=== PATIENT | male | born 1985 | race Caucasian/White ===

== ENCOUNTER 2016-10-11 09:49 | Emergency (ER) | payer OTHER ==
[~2016-10-11] VITALS: Ht 182.9 cm; Wt 102.1 kg
[~2016-10-11 09:49] MED LIST: AMOXICILLIN500 M2 PO; AUGMENTIN 875 M1 TAB PO; AUGMENTIN 875-1 EACH PO; BACTRIM DS TAB1 EACH PO; DIVALPROEX SOD500 MG PO; GABAPENTIN400 MG PO; HYDROXYZINE PAM50 MG PO; IBUPROFEN800 M1 PO; NAPROXEN500 MG PO; NORCO 5-325 TA1 EACH PO; PERCOCET 5-3251 EACH PO; PROAIR HFA0.09 MG/Ac INH; TRAMADOL HCL50 M1 PO; TRAZODONE HCL50 M1 PO; TRIHEXYPHENIDYL2 MG PO; ZIPRASIDONE HYD80 MG PO
[2016-10-11 10:21] VITALS: BP 108/76
--- NOTE | 2016-10-11 10:29 | ED HAND/WRIST INJURY COMPLAINT ---
History of Present Illness General Chief Complaint: Hand or Wrist Injury Stated Complaint: R HAND INJURY Source: patient Exam Limitations: no limitations Vital Signs & Intake/Output Vital Signs & Intake/Output Vital Signs Date Time Temp Pulse Resp B/P Pulse O2 O2 Flow FiO2 Ox Delivery Rate 10/11 1021 97.4 51 18 108/76 98 Room Air ED Intake and Output 10/12 0000 10/11 1200 Intake Total Output Total Balance Patient 225 lb Weight Allergies Coded Allergies: NO KNOWN ALLERGIES (04/07/16) Reconcile Medications Albuterol Sulfate (Proair Hfa) 0.09 MG/Actuation ALLEN 2 PUFF INH PRN ASTHMA ( Reported) Amoxicillin 500 MG CAPSULE 1 CAP PO BID CELLULITIS Divalproex Sodium (Divalproex Sodium ER) 500 MG TAB.ER.24H 3 TAB PO AD MENTAL HEALTH (Reported) Gabapentin 400 MG CAPSULE 6 CAP PO AD MENTAL HEALTH (Reported) Ibuprofen 600 MG TABLET 1 TAB PO TID PRN PAIN with food Oxycodone HCl/Acetaminophen (Percocet 5-325 MG Tablet) 5 MG-325 MG TABLET 1 TAB PO BID PRN PAIN Sulfamethoxazole/Trimethoprim (Bactrim Ds Tablet) 1 EACH TABLET 1 TAB PO BID ABSCESS Trazodone HCl 50 MG TABLET 1 TAB PO QPM PRN INSOMNIA (Reported) TRIHEXYPHENIDYL HCL (Trihexyphenidyl HCl) 2 MG TABLET 1 TAB PO BID MENTAL HEALTH (Reported) ZIPRASIDONE HCL (Ziprasidone Hydrochloride) 80 MG CAPSULE 1 CAP PO BID MENTAL HEALTH (Reported) Triage Note: FELL LAST PM, SLIPPED ON KITCHEN FLOOR, C/O PAIN IN R HAND (BASE OF THUMB). Triage Nurses Notes Reviewed? yes HPI: 31-year-old male was brought to triage to [facility] for evaluation of hand pain that occurred last night. He reports that he tripped and fell with his right hand outstretched. He is complaining of bruising and pain to his right thumb and palm of his hand area. Pain is 10 out of 10 headache throbbing. Ice pack applied at triage and now again in the hallway. Percocet offered for pain. He denies any other injuries. (BRANDON FINNEY APRN) Past History Travel History Traveled to [place] past 21 day No Medical History Any Pertinent Medical History? 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 No (BRANDON FINNEY APRN) Review of Systems Review of Systems Constitutional: Reports: no symptoms. EENTM: Reports: no symptoms. Respiratory: Reports: no symptoms. Cardiovascular: Reports: no symptoms. GI: Reports: no symptoms. Genitourinary: Reports: no symptoms. Musculoskeletal: Reports: see HPI. Skin: Reports: no symptoms. Neurological/Psychological: Reports: no symptoms. Hematologic/Endocrine: Reports: no symptoms. Immunologic/Allergic: Reports: no symptoms. All Other Systems: Reviewed and Negative (BRANDON FINNEY APRN) Physical Exam Physical Exam General Appearance: well developed/nourished, mild distress Head: atraumatic Eyes: Bilateral: PERRL, EOMI. Ears, Nose, Throat: normal pharynx, normal ENT inspection, hearing grossly normal Neck: normal inspection, supple Cardiovascular/Respiratory: normal breath sounds, regular rate/rhythm Back: normal inspection Hand Left: normal inspection, normal range of motion Hand Right: normal range of motion, ecchymosis, swelling, tender Skin: intact, normal color, warm/dry Lymphatic: no anterior cervical briana Diagram Hands Front 1) Ecchymosis, tenderness and swelling (BRNADON FINNEY APRN) Progress Differential Diagnosis: contusion, fracture Plan of Care: Orders Procedure Date/time Status XRY-HAND, 3 View RIGHT 10/11 1048 Active Diagnostic Imaging: Viewed by Me: Radiology Read. Discussed w/RAD: Radiology Read. Comments: PATIENT: CONCHITA LOPEZ PRESENT AGE: 31 PATIENT ACCOUNT NO: [id number] : 86 LOCATION: [facility] ORDERING PHYSICIAN: BRANDON FINNEY APRN SERVICE DATE: 10/11/16-1048 EXAM TYPE: RAD - XRY-HAND, RIGHT EXAMINATION: XR HAND, RIGHT CLINICAL INFORMATION: Fall on outstretched hand with bruising or tenderness to right palm. COMPARISON: None TECHNIQUE: 3 views of the right hand performed. of the right hand. FINDINGS: The alignment is normal. No fracture, dislocation or acute osseous abnormality is seen. IMPRESSION: Normal examination. DICTATED BY: ELISE PINEDO MD DATE/TIME DICTATED:10/11/161258 ACADEMIC REGISTRAR:CHEYANNE DATE/TIME TRANSCRIBED:10/11/161258 CONFIDENTIAL, DO NOT COPY WITHOUT APPROPRIATE AUTHORIZATION. (BRANDON FINNEY APRN) Departure Departure Time of Disposition: 1223 Disposition: HOME OR SELF CARE Condition: Stable Clinical Impression Primary Impression: Hand contusion Qualifiers: Encounter type: initial encounter Laterality: right Qualified Code: S60.221A - Contusion of right hand, initial encounter Referrals: BEL ANDERS (PCP/Family) Additional Instructions: Ice to right, 3-4 times a day for the next 3 days. Ibuprofen for mild to moderate pain and Percocet as needed for moderate to severe pain every 4-6 hours. Use Nehemiah bandage for comfort to right hand. Departure Forms: Customer Survey General Discharge Information Prescriptions: Current Visit Scripts Oxycodone HCl/Acetaminophen (Percocet 5-325 MG Tablet) 1 TAB PO BID PRN PAIN #10 TAB Ibuprofen 1 TAB PO TID PRN PAIN #30 TAB with food (BRANDON FINNEY APRN) PA/CLINICAL PHARMACY MANAGER Co-Sign Statement Statement: ED Attending supervision documentation- [] I saw and evaluated the patient. I have also reviewed all the pertinent lab results and diagnostic results. I agree with the findings and the plan of care as documented in the PA's/CLINICAL PHARMACY MANAGER's documentation. [X] I have reviewed the ED Record and agree with the PA's/CLINICAL PHARMACY MANAGER's documentation. [] Additions or exceptions (if any) to the PAs/CLINICAL PHARMACY MANAGER's note and plan are summarized below: [] (YURI BOYER,LETY Jordan)
[2016-10-11] MEDS ORDERED: PERCOCET 5-3251 EACH PO (12:25)
[2016-10-11] MEDS ORDERED: IBUPROFEN600 M1 PO (12:25)
--- NOTE | 2016-10-11 13:03 | RADIOLOGY REPORT ---
EXAMINATION: XR HAND, RIGHT CLINICAL INFORMATION: Fall on outstretched hand with bruising or tenderness to right palm. COMPARISON: None TECHNIQUE: 3 views of the right hand performed. of the right hand. FINDINGS: The alignment is normal. No fracture, dislocation or acute osseous abnormality is seen. IMPRESSION: Normal examination.
== END 2016-10-11 12:56 ==
LOC: ERH 09:49
DX: S60.221A Contusion of right hand, initial encounter (principal); W01.0XXA Fall on same level from slipping, tripping and stumbling without subsequent striking against object, initial encounter; Y93.9 Activity, unspecified; Y92.9 Unspecified place or not applicable
CPT/HCPCS: 73130-RT

== ENCOUNTER 2017-10-28 12:19 | Emergency (ER) | payer OTHER ==
[~2017-10-28] VITALS: Ht 185.4 cm; Wt 97.5 kg
[~2017-10-28 12:19] MED LIST changes: +IBUPROFEN600 M1 PO
[2017-10-28 12:29] VITALS: BP 156/92
--- NOTE | 2017-10-28 16:32 | ED HAND/WRIST INJURY COMPLAINT ---
History of Present Illness General Chief Complaint: Laceration Procedure Stated Complaint: LFT HAND CTS AT WORK Source: patient Exam Limitations: no limitations Vital Signs & Intake/Output Vital Signs & Intake/Output Vital Signs Date Time Temp Pulse Resp B/P B/P Pulse O2 O2 Flow FiO2 Mean Ox Delivery Rate 10/28 1705 Room Air 10/28 1229 99.1 90 16 156/92 98 Room Air Allergies Coded Allergies: NO KNOWN ALLERGIES (04/07/16) Reconcile Medications Albuterol Sulfate (Proair Hfa) 0.09 MG/Actuation ALELN 2 PUFF INH PRN ASTHMA ( Reported) Amoxicillin 500 MG CAPSULE 1 CAP PO BID CELLULITIS Divalproex Sodium (Divalproex Sodium ER) 500 MG TAB.ER.24H 3 TAB PO AD MENTAL HEALTH (Reported) Gabapentin 400 MG CAPSULE 6 CAP PO AD MENTAL HEALTH (Reported) Ibuprofen 600 MG TABLET 1 TAB PO TID PRN PAIN with food Oxycodone HCl/Acetaminophen (Percocet 5-325 MG Tablet) 5 MG-325 MG TABLET 1 TAB PO BID PRN PAIN Sulfamethoxazole/Trimethoprim (Bactrim Ds Tablet) 1 EACH TABLET 1 TAB PO BID ABSCESS Trazodone HCl 50 MG TABLET 1 TAB PO QPM PRN INSOMNIA (Reported) TRIHEXYPHENIDYL HCL (Trihexyphenidyl HCl) 2 MG TABLET 1 TAB PO BID MENTAL HEALTH (Reported) ZIPRASIDONE HCL (Ziprasidone Hydrochloride) 80 MG CAPSULE 1 CAP PO BID MENTAL HEALTH (Reported) Triage Note: C/O SLICED LEFT RING FINGER AT WORK ON A GLASS. BANDAID IN PLACE AND BLEEDING CONTROLLED. LAST TD UNKNOWN Triage Nurses Notes Reviewed? yes Occurred: this afternoon Duration: hour(s): Timing: recent history Injury Environment: work Severity: mild Pain/Injury Location: Left: 4th finger. Context: laceration Method of Injury: laceration HPI: 32YO MALE presents to ED complaining of laceration to left ring finger this afternoon while at work. Patient cut finger on fluoroscent light. Patient is worried that there may be glass fragments in the wound as the glass broke after laceration. Patient unsure of last tetanus vaccine. Patient has no issues with range of motion. He denies numbness, tingling. (Annie FELIZ,Diane Alcazar) Past History Travel History Traveled to [place] past 21 day No Medical History Any Pertinent Medical History? 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 No (Diane Ellison) Review of Systems Review of Systems Constitutional: Reports: no symptoms. EENTM: Reports: no symptoms. Respiratory: Reports: no symptoms. Cardiovascular: Reports: no symptoms. GI: Reports: no symptoms. Genitourinary: Reports: no symptoms. Musculoskeletal: Reports: no symptoms. Skin: Reports: see HPI. Neurological/Psychological: Reports: no symptoms. Hematologic/Endocrine: Reports: no symptoms. Immunologic/Allergic: Reports: no symptoms. All Other Systems: Reviewed and Negative (Diane Ellison) Physical Exam Physical Exam General Appearance: well developed/nourished, no apparent distress, alert, awake Head: atraumatic, normal appearance Eyes: Bilateral: normal appearance. Ears, Nose, Throat: hearing grossly normal Neck: normal inspection, supple, full range of motion Cardiovascular/Respiratory: no respiratory distress Back: normal inspection, normal range of motion Shoulder Left: normal range of motion, normal inspection Shoulder Right: normal range of motion, normal inspection Elbow Left: normal range of motion, normal inspection Elbow Right: normal range of motion, normal inspection Forearm Left: normal range of motion, normal inspection Forearm Right: normal range of motion, normal inspection Wrist Left: normal range of motion, normal inspection Wrist Right: normal range of motion, normal inspection Hand Left: 1 cm superficial laceration to lateral 4th digit, ROM intact, no foreign body visible Hand Right: normal inspection, normal range of motion Neurologic/Tendon: normal sensation, normal motor functions, normal tendon functions Skin: superficial laceration as described (Diane Ellison) Progress Differential Diagnosis: contusion, fracture, laceration, foreign body Plan of Care: Current Medications Sig/Emilie Start time Last Medication Dose Stop Time Status Admin Tetanus/Diphtheria 0.5 ML ONCE ONE 04/11 1700 UNVr Toxoids Adsorbed 10/28 1700 (Decavac) (Diane Ellison) Departure Departure Disposition: HOME OR SELF CARE Condition: Stable Clinical Impression Primary Impression: Laceration Referrals: María Tobias APRN (PCP/Family) Additional Instructions: Do not get this area wet for at least 3 days. Allow Steri-Strips to fall off on their own, once they fall off he may that the area wet and clean with soap and water. Where finger brace for 3 days to allow healing over your finger joint. Monitor for signs of skin infection such as redness, swelling, increasing pain, cloudy drainage from wound. Return with any of the symptoms as you may require antibiotics. Please note that there might be incidental findings in your evaluation that are unrelated to the current emergency department visit. Please notify your primary care doctor about this emergency department visit in order to obtain and review all of the testing performed so that these incidental findings can be monitored as needed. If you had an x-ray performed, please understand that some fractures may not be seen on the initial set of x-rays. If your symptoms persist you might need a repeat set of x-rays to check for such a fracture. If you had a laceration evaluated, please understand that foreign bodies such as glass or wood may not be visible to the naked eye or on plain x-rays. If the wound becomes red, swollen, increasingly more painful or if there is any drainage from the wound, please have it reevaluated by a physician for the possibility of a retained foreign body. If you're unable to follow up as outlined in the discharge instructions please return to the emergency department. Thank you for choosing the [facility] Emergency Department for your care. It was a pleasure to serve you today. Departure Forms: Customer Survey General Discharge Information (Diane Ellison) PA/CREATIVE GURU Co-Sign Statement Statement: ED Attending supervision documentation- [] I saw and evaluated the patient. I have also reviewed all the pertinent lab results and diagnostic results. I agree with the findings and the plan of care as documented in the PA's/CREATIVE GURU's documentation. [X] I have reviewed the ED Record and agree with the PA's/CREATIVE GURU's documentation. [] Additions or exceptions (if any) to the PAs/CREATIVE GURU's note and plan are summarized below: [] (Ganesh Molina DO) Procedures Laceration/Wound Repair Laceration/Wound Repair: Wound Location: left finger Wound's Depth, Shape: linear, superficial Wound Length (cm): 1 Wound Explored: irrigated extensively Irrigated w/ Saline (ccs): 500 Betadine Prep? No Wound Repaired With: Steri-strips, Dermabond Splint Applied? Yes By Who? by me Type of Splint Applied: finger splint Date of Last Tetanus: 10/28/17 Tetanus Status: up to date Progress: Patient tolerated procedure well. (Annie FELIZ,Diane Alcazar)
== END 2017-10-28 17:06 ==
LOC: ERH 12:19
DX: S61.215A Laceration without foreign body of left ring finger without damage to nail, initial encounter (principal); W45.8XXA Other foreign body or object entering through skin, initial encounter; Y92.9 Unspecified place or not applicable; Y93.9 Activity, unspecified
CPT/HCPCS: 90471; 90714

== ENCOUNTER 2018-04-15 15:07 | Emergency (ER) | payer OTHER ==
[~2018-04-15] VITALS: Ht 185.4 cm; Wt 102.1 kg
[2018-04-15 15:34] VITALS: BP 126/87
--- NOTE | 2018-04-15 15:36 | ED THROAT/DENTAL COMPLAINT ---
History of Present Illness General Chief Complaint: Sore Throat, Dental Pain Stated Complaint: TOOTH FELL OUT, INFECTED AND PAINFUL Source: patient Exam Limitations: no limitations Vital Signs & Intake/Output Vital Signs & Intake/Output Vital Signs Date Time Temp Pulse Resp B/P B/P Pulse O2 O2 Flow FiO2 Mean Ox Delivery Rate 04/15 1534 98.6 92 20 126/87 96 Room Air Allergies Coded Allergies: NO KNOWN ALLERGIES (04/07/16) Reconcile Medications Albuterol Sulfate (Proair Hfa) 0.09 MG/Actuation ALLEN 2 PUFF INH PRN ASTHMA ( Reported) Amoxicillin 500 MG CAPSULE 1 CAP PO BID CELLULITIS Amoxicillin/Potassium Clav (Augmentin 875-125 Tablet) 875 MG-125 MG TABLET 1 TAB PO BID DENTAL INFECTIOM Divalproex Sodium (Divalproex Sodium ER) 500 MG TAB.ER.24H 3 TAB PO AD MENTAL HEALTH (Reported) Gabapentin 400 MG CAPSULE 6 CAP PO AD MENTAL HEALTH (Reported) Hydrocodone/Acetaminophen ([place] 5-325 Tablet) 5 MG-325 MG TABLET 1-2 TAB PO Q4-6 PRN PRN SEVERE PAIN Ibuprofen 600 MG TABLET 1 TAB PO TID PRN PAIN with food Oxycodone HCl/Acetaminophen (Percocet 5-325 MG Tablet) 5 MG-325 MG TABLET 1 TAB PO BID PRN PAIN Sulfamethoxazole/Trimethoprim (Bactrim Ds Tablet) 1 EACH TABLET 1 TAB PO BID ABSCESS Trazodone HCl 50 MG TABLET 1 TAB PO QPM PRN INSOMNIA (Reported) TRIHEXYPHENIDYL HCL (Trihexyphenidyl HCl) 2 MG TABLET 1 TAB PO BID MENTAL HEALTH (Reported) ZIPRASIDONE HCL (Ziprasidone Hydrochloride) 80 MG CAPSULE 1 CAP PO BID MENTAL HEALTH (Reported) Triage Note: PT COMPLAINS OF R UPPER DENTAL PAIN AFTER FILLING FEEL OUT THIS AM. HAS APPOINTMENT IN 2 DAYS Triage Nurses Notes Reviewed? yes Onset: Abrupt Duration: day(s): (1), constant, continues in ED, getting worse Timing: single episode today Injury Environment: home Severity: moderate, severe Severity Numbers: 8 No Modifying Factors: none HPI: 33-year-old male history of asthma and schizoaffective disorder presents for evaluation of right upper tooth pain. Patient reports he was eating when part of his right upper molar cracked and fell out. He states since then he has had pain that has been getting worse. Has been taking ibuprofen without improvement. He tried to get a dental appointment today but they had no availability. He does have an appointment for 2 days. He denies any difficulty swallowing fluids no difficulty opening the mouth or difficulty breathing chest pain or shortness of breath. No fevers. No swelling. (Wally Patrick) Past History Travel History Traveled to [place] past 21 day No Medical History Any Pertinent Medical History? 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 No (Wally Patrick) Review of Systems Review of Systems Constitutional: Reports: no symptoms. EENTM: Reports: mouth pain, tooth pain. Respiratory: Reports: no symptoms. Cardiovascular: Reports: no symptoms. GI: Reports: no symptoms. Genitourinary: Reports: no symptoms. Musculoskeletal: Reports: no symptoms. Skin: Reports: no symptoms. Neurological/Psychological: Reports: no symptoms. Hematologic/Endocrine: Reports: no symptoms. Immunologic/Allergic: Reports: no symptoms. All Other Systems: Reviewed and Negative (Wally Patrick) Physical Exam Physical Exam General Appearance: well developed/nourished, no apparent distress, alert, awake Head: atraumatic, normal appearance Eyes: Bilateral: normal appearance, EOMI. Ears: Bilateral: canal normal, Tympanic normal. Nose: normal inspection Mouth/Throat: poor dentition overall. multiple dental caries, cracked and missing teeth. the tooth in the number 5 or 6 position is cracked with a portion missing. no erythema discharge or focal fluctuant areas. no trismus. pt is handeling secretions. no lymphadenopathy Neck: normal inspection, supple, full range of motion Cardiovascular/Respiratory: normal breath sounds, normal peripheral pulses, regular rate/rhythm, no respiratory distress Back: normal inspection, normal range of motion, no vertebral tenderness Neurologic/Psych: no motor/sensory deficits, awake, alert, oriented x 3, normal gait, normal mood/affect Skin: intact, normal color, warm/dry Core Measures ACS in differential dx? No Sepsis Present: No Sepsis Focused Exam Completed? No (Wally Patrick) Progress Differential Diagnosis: aspirated tooth, carious tooth, epiglottitis, Ludwigs angina, odontogenic abscess, kanwal-tonsillar abscess, stomatitis/gingivitis, tooth fracture, derntal caries Plan of Care: Patient is here for evaluation of dental pain. He reports while eating today part of his tooth cracked and fell out. On exam he has very poor dentition multiple cracked and missing teeth. He points to the tooth #5 #6 position which is cracked. No signs of infection currently. No trismus is handling secretions. Patient will be covered with Augmentin and given [place] for severe pain. He reports he has a dental appointment in 2 days. Discussed return precautions follow-up with the dentist patient agrees the plan (Wally Patrick) Departure Departure Disposition: HOME OR SELF CARE Condition: Stable Clinical Impression Primary Impression: Pain, dental Referrals: María Tobias APRN Additional Instructions: Take antibiotics as directed for the full course. Use a mouthwash twice a day. Make a follow-up with a dentist as soon as possible. Continue ibuprofen as needed for pain [place] for severe pain only. Monitor your symptoms return with any concerns. Departure Forms: Customer Survey General Discharge Information Prescriptions: Current Visit Scripts Amoxicillin/Potassium Clav (Augmentin 875-125 Tablet) 1 TAB PO BID #20 TAB Hydrocodone/Acetaminophen ([place] 5-325 Tablet) 1-2 TAB PO Q4-6 PRN PRN SEVERE PAIN #8 TAB (Wally Patrick) PA/SPRING FORGER Co-Sign Statement Statement: ED Attending supervision documentation- [] I saw and evaluated the patient. I have also reviewed all the pertinent lab results and diagnostic results. I agree with the findings and the plan of care as documented in the PA's/SPRING FORGER's documentation. [x] I have reviewed the ED Record and agree with the PA's/SPRING FORGER's documentation. [] Additions or exceptions (if any) to the PAs/SPRING FORGER's note and plan are summarized below: [] (Alejandro BOYER, Mateo)
[2018-04-15] MEDS ORDERED: AUGMENTIN 875-1 EACH PO (15:41)
[2018-04-15] MEDS ORDERED: NORCO 5-325 TA1 EACH PO (15:42)
== END 2018-04-15 15:53 ==
LOC: ERH 15:07
DX: K08.89 Other specified disorders of teeth and supporting structures (principal); F17.210 Nicotine dependence, cigarettes, uncomplicated